=== PATIENT | male | born 1930 | race Caucasian/White ===

== ENCOUNTER → 2016-11-09 | Outpatient (CLI) | payer OTHER ==
[~2016-11-09] MED LIST: CEFD300C37 PO; FURO-93 PO; LOPE1TAB4 PO; LOSA25TA5 PO; MULT-717 PO; POTA20PA PO; SENN8.6T4 PO; VIT1CAPS11 PO; WARF2.5T PO; WARF5TAB PO
== END | disposition home or self-care (01) ==
LOC: CFH 08:42
PROVIDERS: ATTEND Internal Medicine Cardiovascular Disease
DX: I50.30 Unspecified diastolic (congestive) heart failure (principal); I08.3 Combined rheumatic disorders of mitral, aortic and tricuspid valves; I77.810 Thoracic aortic ectasia; I48.91 Unspecified atrial fibrillation
CPT/HCPCS: 93306

== ENCOUNTER 2018-05-01 10:04 | Inpatient (IN) | payer MEDICARE, OTHER ==
[~2018-05-01] VITALS: Ht 182.9 cm; Wt 72.6 kg
[~2018-05-01 10:04] MED LIST changes: +LOSA25TA25 PO; -LOSA25TA5 PO; -POTA20PA PO; +POTA20PA31 PO; +SENN-88 PO; -SENN8.6T4 PO
[2018-05-01 11:00] LABS: INTERNATIONAL NORMALIZED RATIO 2.38 (0.93-1.1); PROTHROMBIN TIME 24.4 Seconds (9.6-11.5)
[2018-05-01 11:01] LABS: ALANINE AMINOTRANSFERASE 23 U/L (12-78); ALBUMIN 3.4 g/dL (3.4-5.0); ANION GAP 9 mmol/L (5-15); CALCIUM 8.3 mg/dL (8.5-10.1); CHLORIDE 102 mmol/L (98-107); CREATININE 1.81 mg/dL (0.7-1.3)
--- NOTE | 2018-05-01 11:02 | NUR ---
received report from Lizz. pt upright on [place] awake & comfortable, responds approp to staff, NAD at rest, comfort measures provided, at BS, call light within reach. Addendum: 05/01/18 at 1255 by LEIDY received report from Lizz. pt upright on [place] awake & comfortable, responds approp to staff, NAD at rest, comfort measures provided, son at BS, call light within reach.
[2018-05-01 11:03] LABS: ALKALINE PHOSPHATASE 60 U/L (45-117); BILIRUBIN,TOTAL 1.3 mg/dL (0.2-1.0); TOTAL PROTEIN 6.6 g/dL (6.4-8.2)
[2018-05-01 11:31] LABS: BASOPHILS % (AUTO) 0 % (0-1); EOSINOPHILS % (AUTO) 0 % (1-7); LYMPHOCYTES # (AUTO) 0.58 x10^3/uL (1-3.4); LYMPHOCYTES % (AUTO) 6 % (22-44); MD NO; MEAN CORPUSCULAR HEMOGLOBIN 33.9 pg (27.5-34.5); MEAN CORPUSCULAR HGB CONC 33.9 g/dL (33.2-36.2); MEAN CORPUSCULAR VOLUME 100.1 fL (81-97); MEAN PLATELET VOLUME 8.8 fL (7.4-10.4); MONOCYTES # (AUTO) 0.76 x10^3/uL (0.2-0.8); MONOCYTES % (AUTO) 8 % (2-9); NEUTROPHILS # (AUTO) 8.77 x10^3/uL (1.8-6.8); NEUTROPHILS % (AUTO) 87 % (42-75); PLATELET COUNT 148 x10^3/uL (130-400); RED BLOOD COUNT 4.04 x10^6/uL (4.38-5.82); RED CELL DISTRIBUTION WIDTH 14.8 % (9.4-14.8)
--- NOTE | 2018-05-01 12:07 | NUR ---
pt remains upright on gurney with eyes closed, responds approp to staff, NAD at rest, comfort measures provided, call light within reach.
--- NOTE | 2018-05-01 12:55 | NUR ---
pt upright on gurney with eyes closed, responds approp to staff, NAD at rest, comfort measures provided, call light within reach.
[2018-05-01] MEDS ORDERED: AZITHROMYCIN 500 MG in SODIUM CHLORIDE 0.9% 250 ML IV ONE (13:00)
[2018-05-01] MEDS ORDERED: CEFTRIAXONE PMX 1GM/50ML 50 ML IV ONE (13:00)
[2018-05-01] MEDS ORDERED: CEFTRIAXONE PMX 1GM/50ML 50 ML ONE (13:08)
[2018-05-01] MEDS ORDERED: ONDANSETRON ODT 4 MG PO PRN (14:00)
[2018-05-01] MEDS ORDERED: HEPARIN 5,000 UNITS/ML, 1ML SQ SCH (14:00)
[2018-05-01 15:31] VITALS: BP 126/65
[2018-05-01] MEDS: DOXYCYCLINE 100 MG in DEXTROSE 5% 250 ML IV SCH (17:07)
[2018-05-01] MEDS: SODIUM CHLORIDE 0.9% 1,000 ML IV SCH (17:07)
[2018-05-01 17:08] LABS: MICROSCOPIC INDICATED
[2018-05-01 17:15] LABS: CULTURE INDICATED? NO
[2018-05-01 17:29] LABS: RAPID INFLUENZA A Negative (Negative); RAPID INFLUENZA B Negative (Negative)
[2018-05-01] MEDS ORDERED: WARFARIN 2.5 MG TABLET PO-COUM ONE (18:00)
[2018-05-01 20:08] VITALS: BP 123/69
[2018-05-01] MEDS: TIMOLOL OPHTH 0.25%, 5ML LEFTEYE SCH (22:03)
[2018-05-01] MEDS: BRIMONIDINE TART. OPHTH 0.2%, 5ML RIGHTEYE SCH (22:05)
[2018-05-02] MEDS: CEFTRIAXONE PMX 1GM/50ML 50 ML IV SCH (01:13)
[2018-05-02 01:54] VITALS: BP 136/75
[2018-05-02] MEDS: DOXYCYCLINE 100 MG in DEXTROSE 5% 250 ML IV SCH ×2 (05:28→17:10)
[2018-05-02] MEDS: SODIUM CHLORIDE 0.9% 1,000 ML IV SCH (05:29)
[2018-05-02 06:00] LABS: INTERNATIONAL NORMALIZED RATIO 2.95 (0.93-1.1)
[2018-05-02 06:02] LABS: BASOPHILS % (AUTO) 0 % (0-1); EOSINOPHILS % (AUTO) 0 % (1-7); LYMPHOCYTES # (AUTO) 0.46 x10^3/uL (1-3.4); LYMPHOCYTES % (AUTO) 6 % (22-44); MD NO; MEAN CORPUSCULAR HEMOGLOBIN 34.1 pg (27.5-34.5); MEAN CORPUSCULAR HGB CONC 33.8 g/dL (33.2-36.2); MEAN CORPUSCULAR VOLUME 100.8 fL (81-97); MEAN PLATELET VOLUME 9.1 fL (7.4-10.4); MONOCYTES # (AUTO) 0.68 x10^3/uL (0.2-0.8); MONOCYTES % (AUTO) 9 % (2-9); NEUTROPHILS # (AUTO) 6.73 x10^3/uL (1.8-6.8); NEUTROPHILS % (AUTO) 86 % (42-75); PLATELET COUNT 127 x10^3/uL (130-400); RED CELL DISTRIBUTION WIDTH 14.4 % (9.4-14.8)
[2018-05-02 06:06] LABS: CHLORIDE 102 mmol/L (98-107)
[2018-05-02 06:14] LABS: ALANINE AMINOTRANSFERASE 21 U/L (12-78); ALBUMIN 2.8 g/dL (3.4-5.0); ALKALINE PHOSPHATASE 48 U/L (45-117); ANION GAP 11 mmol/L (5-15); BILIRUBIN,TOTAL 0.9 mg/dL (0.2-1.0); CALCIUM 7.5 mg/dL (8.5-10.1); CREATININE 1.18 mg/dL (0.7-1.3); TOTAL PROTEIN 5.7 g/dL (6.4-8.2)
[2018-05-02 07:10] VITALS: BP 121/68
[2018-05-02] MEDS: LATANOPROST OPHTH 0.005%, 2.5ML EACHEYE SCH (09:00)
[2018-05-02] MEDS: BRIMONIDINE TART. OPHTH 0.2%, 5ML RIGHTEYE SCH ×2 (09:03→22:35)
[2018-05-02] MEDS: TIMOLOL OPHTH 0.25%, 5ML LEFTEYE SCH ×2 (09:03→22:34)
[2018-05-02 12:58] VITALS: BP 117/70
[2018-05-02] MEDS ORDERED: ACETAMINOPHEN 325 MG TABLET PO PRN (14:00)
[2018-05-02] MEDS ORDERED: WARFARIN 1 MG TABLET PO-COUM ONE (18:00)
[2018-05-02 21:08] VITALS: BP 123/67
[2018-05-03] MEDS: CEFTRIAXONE PMX 1GM/50ML 50 ML IV SCH (01:24)
[2018-05-03] MEDS: SODIUM CHLORIDE 0.9% 1,000 ML IV SCH (03:00)
[2018-05-03 03:21] VITALS: BP 142/85
[2018-05-03 05:31] LABS: BASOPHILS # (AUTO) 0.02 x10^3/uL (0-0.1); BASOPHILS % (AUTO) 0 % (0-1); EOSINOPHILS # (AUTO) 0.01 x10^3/uL (0-0.4); EOSINOPHILS % (AUTO) 0 % (1-7); LYMPHOCYTES # (AUTO) 0.78 x10^3/uL (1-3.4); LYMPHOCYTES % (AUTO) 11 % (22-44); MD NO; MEAN CORPUSCULAR HEMOGLOBIN 34.4 pg (27.5-34.5); MEAN CORPUSCULAR VOLUME 101.2 fL (81-97); MONOCYTES # (AUTO) 0.75 x10^3/uL (0.2-0.8); MONOCYTES % (AUTO) 11 % (2-9); NEUTROPHILS # (AUTO) 5.35 x10^3/uL (1.8-6.8); NEUTROPHILS % (AUTO) 78 % (42-75); PLATELET COUNT 126 x10^3/uL (130-400); RED BLOOD COUNT 3.94 x10^6/uL (4.38-5.82); RED CELL DISTRIBUTION WIDTH 14.3 % (9.4-14.8)
[2018-05-03] MEDS: DOXYCYCLINE 100 MG in DEXTROSE 5% 250 ML IV SCH ×2 (05:35→17:38)
[2018-05-03 05:39] LABS: INTERNATIONAL NORMALIZED RATIO 2.95 (0.93-1.1)
[2018-05-03 05:44] LABS: ANION GAP 6 mmol/L (5-15); CALCIUM 7.1 mg/dL (8.5-10.1); CHLORIDE 106 mmol/L (98-107)
[2018-05-03 05:47] LABS: CREATININE 0.97 mg/dL (0.7-1.3)
[2018-05-03 08:41] VITALS: BP 118/74
[2018-05-03] MEDS: LATANOPROST OPHTH 0.005%, 2.5ML EACHEYE SCH (09:00)
[2018-05-03] MEDS: BRIMONIDINE TART. OPHTH 0.2%, 5ML RIGHTEYE SCH ×2 (09:29→20:31)
[2018-05-03] MEDS: TIMOLOL OPHTH 0.25%, 5ML LEFTEYE SCH ×2 (09:29→20:32)
[2018-05-03 13:32] VITALS: BP 102/57
[2018-05-03] MEDS ORDERED: WARFARIN 2 MG TABLET PO-COUM ONE (18:00)
[2018-05-03 19:05] VITALS: BP 107/64
[2018-05-04] VITALS (10 sets, daily range): BP systolic 103–143; BP diastolic 61–85
[2018-05-04] MEDS: CEFTRIAXONE PMX 1GM/50ML 50 ML IV SCH (02:01)
[2018-05-04] MEDS: DOXYCYCLINE 100 MG in DEXTROSE 5% 250 ML IV SCH ×2 (05:17→18:30)
[2018-05-04 05:25] LABS: BASOPHILS # (AUTO) 0.01 x10^3/uL (0-0.1); BASOPHILS % (AUTO) 0 % (0-1); EOSINOPHILS % (AUTO) 3 % (1-7); LYMPHOCYTES # (AUTO) 0.87 x10^3/uL (1-3.4); LYMPHOCYTES % (AUTO) 13 % (22-44); MD NO; MEAN CORPUSCULAR HEMOGLOBIN 34.1 pg (27.5-34.5); MEAN CORPUSCULAR HGB CONC 33.9 g/dL (33.2-36.2); MEAN CORPUSCULAR VOLUME 100.6 fL (81-97); MEAN PLATELET VOLUME 8.7 fL (7.4-10.4); MONOCYTES # (AUTO) 0.76 x10^3/uL (0.2-0.8); MONOCYTES % (AUTO) 11 % (2-9); NEUTROPHILS # (AUTO) 4.96 x10^3/uL (1.8-6.8); NEUTROPHILS % (AUTO) 73 % (42-75); PLATELET COUNT 142 x10^3/uL (130-400); RED BLOOD COUNT 3.67 x10^6/uL (4.38-5.82); RED CELL DISTRIBUTION WIDTH 14.5 % (9.4-14.8)
[2018-05-04 05:46] LABS: CHLORIDE 106 mmol/L (98-107)
[2018-05-04 06:00] LABS: ANION GAP 6 mmol/L (5-15); CALCIUM 7.3 mg/dL (8.5-10.1); CREATININE 0.95 mg/dL (0.7-1.3)
[2018-05-04] MEDS: TIMOLOL OPHTH 0.25%, 5ML LEFTEYE SCH ×2 (08:48→21:21)
[2018-05-04] MEDS: LATANOPROST OPHTH 0.005%, 2.5ML EACHEYE SCH (08:50)
[2018-05-04] MEDS: BRIMONIDINE TART. OPHTH 0.2%, 5ML RIGHTEYE SCH ×2 (08:50→21:21)
[2018-05-04 08:57] LABS: PROTHROMBIN TIME 30.5 Seconds (9.6-11.5)
[2018-05-04] MEDS ORDERED: LATA2.5D3 EACHEYE (11:05)
[2018-05-04] MEDS ORDERED: Timolol Ophth 0.25%, 5ML LEFTEYE (11:05)
[2018-05-04] MEDS ORDERED: CEFD300C37 PO (11:06)
[2018-05-04] MEDS ORDERED: DOXY100T PO (11:06)
[2018-05-04] MEDS ORDERED: CEFTRIAXONE PMX 1GM/50ML 50 ML IV SCH (11:30)
[2018-05-04] MEDS ORDERED: WARFARIN 2 MG TABLET PO-COUM ONE (18:00)
[2018-05-05 02:31] VITALS: BP 139/72
[2018-05-05] MEDS: DOXYCYCLINE 100 MG in DEXTROSE 5% 250 ML IV SCH (06:11)
[2018-05-05 08:49] VITALS: BP 110/59
[2018-05-05] MEDS: LATANOPROST OPHTH 0.005%, 2.5ML EACHEYE SCH (09:36)
[2018-05-05] MEDS: BRIMONIDINE TART. OPHTH 0.2%, 5ML RIGHTEYE SCH (09:40)
[2018-05-05] MEDS: TIMOLOL OPHTH 0.25%, 5ML LEFTEYE SCH (09:41)
[2018-05-05] MEDS ORDERED: WARFARIN 2 MG TABLET PO-COUM ONE (12:30)
[2018-05-05 12:36] LABS: INTERNATIONAL NORMALIZED RATIO 2.43 (0.93-1.1); PROTHROMBIN TIME 24.9 Seconds (9.6-11.5)
== END 2018-05-05 14:42 | DRG 871 ==
LOC: ED 11:08 → EDIP 12:56 → 4NOR 15:20
PROVIDERS: ADMIT Internal Medicine; ATTEND Internal Medicine
DX: A41.9 Sepsis, unspecified organism (principal); J18.9 Pneumonia, unspecified organism; J96.01 Acute respiratory failure with hypoxia; N17.0 Acute kidney failure with tubular necrosis; D68.69 Other thrombophilia; Z99.81 Dependence on supplemental oxygen; I48.91 Unspecified atrial fibrillation; D50.9 Iron deficiency anemia, unspecified; E78.5 Hyperlipidemia, unspecified; I11.9 Hypertensive heart disease without heart failure; J84.10 Pulmonary fibrosis, unspecified; W18.39XA Other fall on same level, initial encounter; Y93.89 Activity, other specified; Y92.89 Other specified places as the place of occurrence of the external cause; Y99.8 Other external cause status; Z79.01 Long term (current) use of anticoagulants; Z82.49 Family history of ischemic heart disease and other diseases of the circulatory system
CPT/HCPCS: 36415; 70450; 71045; 71250; 80048; 80053; 81001; 82962; 83605; 84145; 85025; 85610; 85730; 87040; 87400; 93005; 96374; 96375; 99285; G0378; J0456; J0696; J7060; J7030; J7050